=== PATIENT | male | born 1990 | race African-American/Black ===

== ENCOUNTER 2016-11-19 22:55 | Emergency (ER) | payer OTHER ==
[~2016-11-19 22:55] MED LIST: ATIVAN0.5 M1 PO; MOTRIN600 MG PO
[2016-11-19 23:01] VITALS: BP 115/78
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
[2016-11-20] MEDS ORDERED: MOBIC15 M1 PO (13:48)
[2016-11-20] MEDS ORDERED: AUGMENTIN 875-1 EACH PO (13:48)
== END 2016-11-20 01:19 | disposition admitted as inpatient to this hospital (09) ==
LOC: ERH 22:55
DX: R51 Headache (principal); Z87.828 Personal history of other (healed) physical injury and trauma
CPT/HCPCS: 99281

== ENCOUNTER 2017-10-15 00:12 | Emergency (ER) | payer OTHER ==
[~2017-10-15 00:12] MED LIST changes: +AUGMENTIN 875-1 EACH PO; +MOBIC15 M1 PO
[2017-10-15 00:28] VITALS: BP 118/59
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
[2017-10-15] MEDS ORDERED: PROAIR HFA8.5 GM INH (00:57)
[2017-10-15] MEDS ORDERED: HYDROCODON-ACE1 EAC2 PO (09:19)
== END 2017-10-15 01:04 ==
LOC: ERH 00:12
DX: R09.89 Other specified symptoms and signs involving the circulatory and respiratory systems (principal); R06.02 Shortness of breath
CPT/HCPCS: 93005; 93010

== ENCOUNTER 2017-10-15 08:00 | Emergency (ER) | payer OTHER ==
[~2017-10-15 08:00] MED LIST changes: +PROAIR HFA8.5 GM INH
[2017-10-15 08:04] VITALS: BP 114/75
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
[2017-10-15] MEDS ORDERED: HYDROCODON-ACE1 EAC2 PO (09:19)
== END 2017-10-15 09:25 ==
LOC: ERH 08:00
DX: S92.401A Displaced unspecified fracture of right great toe, initial encounter for closed fracture (principal); W18.40XA Slipping, tripping and stumbling without falling, unspecified, initial encounter; Y93.01 Activity, walking, marching and hiking
CPT/HCPCS: 73630-RT